=== PATIENT | male | born 1970 | race Caucasian/White ===

== ENCOUNTER 2019-09-15 07:36 | Emergency (ER) | payer OTHER ==
[2019-09-15 07:43] VITALS: RESP 20
[2019-09-15] MEDS ORDERED: LIDOCAINE 1% INJ 10MG/ML (20 ML MDV) SQ ONE (08:07)
[2019-09-15] MEDS ORDERED: DIPH,PERTUS(ACELL)TETVAC-LF 0.5 ML VIAL IM ONE (08:07)
[2019-09-15 08:10] VITALS: TEMP 97.8
[2019-09-15 08:24] LABS: Basophils % (A) 1 %; Eosinophils # (A) 0.2 k/uL (0-0.7); Eosinophils % (A) 3 %; HCT 45.3 % (39.0-53.0); Lymphocytes # (A) 1.3 k/uL (1.0-4.8); Lymphocytes % (A) 22 %; MCV 93.9 fL (80.0-100.0); Mean Platelet Volume 5.6; Monocytes # (A) 0.3 k/uL (0-1.0); Monocytes % (A) 5 %; Neutrophils # (A) 4.1 k/uL (1.3-7.7); Neutrophils % (A) 67 %; Platelet Count 264 k/uL (150-450); RBC 4.83 m/uL (4.30-5.90); RDW 12.6 % (11.5-15.5); WBC 6.1 k/uL (3.8-10.6)
[2019-09-15 08:30] LABS: ALT 45 U/L (21-72); AST 28 U/L (17-59); African American GFR (CKD) >90 (>60 ml/min/1.73 sqM); Albumin 4.1 g/dL (3.5-5.0); Alkaline Phosphatase 61 U/L (38-126); Anion Gap 7 mmol/L; Blood Urea Nitrogen 19 mg/dL (9-20); Calcium 9.2 mg/dL (8.4-10.2); Carbon Dioxide 27 mmol/L (22-30); Chloride 107 mmol/L (98-107); Glucose 103 mg/dL (74-99); Potassium 4.9 mmol/L (3.5-5.1); Sodium 141 mmol/L (137-145); Total Bilirubin 0.3 mg/dL (0.2-1.3); Total Protein 6.8 g/dL (6.3-8.2)
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
--- NOTE | 2019-09-15 08:33 | ED ---
Dizziness HPI <Dean Grey - Last Filed: 09/15/19 08:56> - General Source: patient, RN notes reviewed Mode of arrival: ambulatory Limitations: no limitations <Yobany Canada - Last Filed: 09/15/19 09:27> - General Chief Complaint: Syncope Stated Complaint: Syncope-facial lac Time Seen by Provider: 09/15/19 07:40 - History of Present Illness Initial Comments: This is a 49-year-old male who presents to the emergency department after having passed out this morning. Patient is a crack cocaine user and he was at [facility] this morning. Patient states last night he was given trazodone for the first time when he got up this morning he was standing in line to get his Motrin he felt a little lightheaded went down to his knees and then fell forward and hit his face. Patient states he feels fine now has no complaints patient states he does not have a headache he has no neck pain he has no numbness weakness. Patient states at no time did he have any chest pain palp itations or difficulty breathing. Patient states currently he has no pain anywhere and has no complaints. (Yobany Canada) - Related Data Home Medications Medication Instructions Recorded Confirmed Acetaminophen Tab [Tylenol Tab] 650 mg PO Q6H 09/15/19 09/15/19 Ibuprofen [Motrin] 600 mg PO Q6HR PRN 09/15/19 09/15/19 Multivitamins, Thera [Multivitamin 1 tab PO DAILY 09/15/19 09/15/19 (formulary)] Thiamine HCl [Vitamin B-1] 100 mg PO DAILY 09/15/19 09/15/19 traZODone HCL 50 - 150 mg PO HS 09/15/19 09/15/19 Allergies Allergy/AdvReac Type Severity Reaction Status Date / Time No Known Allergies Allergy Verified 09/15/19 07:59 Review of Systems ROS Other: All systems not noted in ROS Statement are negative. <Dean Grey - Last Filed: 09/15/19 08:56> ROS Other: All systems not noted in ROS Statement are negative. <Yobany Canada - Last Filed: 09/15/19 09:27> ROS Statement: Those systems with pertinent positive or pertinent negative responses have been documented in the HPI. Past Medical History Past Medical History: No Reported History Past Surgical History: No Surgical Hx Reported Past Psychological History: No Psychological Hx Reported Smoking Status: Current every day smoker Past Alcohol Use History: Occasional Past Drug Use History: Cocaine <Yobany Canada - Last Filed: 09/15/19 09:27> General Exam Limitations: no limitations <[place]Yobany - Last Filed: 09/15/19 09:27> - General Exam Comments Initial Comments: GENERAL: Patient is well-developed and well-nourished. Patient is nontoxic and well- hydrated and is in no acute distress. ENT: Neck is soft and supple. No significant lymphadenopathy is noted. Oropharynx is clear. Moist mucous membranes. Neck has full range of motion without eliciting any pain. EYES: The sclera were anicteric and conjunctiva were pink and moist. Extraocular movements were intact and pupils were equal round and reactive to light. Eyelids were unremarkable. PULMONARY: Unlabored respirations. Good breath sounds bilaterally. No audible rales rhonchi or wheezing was noted. CARDIOVASCULAR: There is a regular rate and rhythm without any murmurs gallops or rubs. ABDOMEN: Soft and nontender with normal bowel sounds. No palpable organomegaly was noted. There is no palpable pulsatile mass. SKIN: Patient has a laceration over the left eye measuring about 2 and half centimeters NEUROLOGIC: Patient is alert and oriented x3. Cranial nerves II through XII are grossly intact. Motor and sensory are also intact. Normal speech, volume and content. Symmetrical smile. MUSCULOSKELETAL: Normal extremities with adequate strength and full range of motion. No lower extremity swelling or edema. No calf tenderness. LYMPHATICS: No significant lymphadenopathy is noted PSYCHIATRIC: Normal psychiatric evaluation. (Yobany [place]) Course Vital Signs 09/15/19 09/15/19 09/15/19 07:40 07:51 08:00 Temperature 97.4 F L Pulse Rate 76 68 78 Respiratory 20 20 Rate Blood Pressure 101/69 100/69 O2 Sat by Pulse 99 99 97 Oximetry 09/15/19 08:07 Temperature 97.8 F Pulse Rate 77 Respiratory 20 Rate Blood Pressure 98/65 O2 Sat by Pulse 98 Oximetry Procedures - Laceration Laceration #1 Consent Obtained: verbal consent Indication: laceration Site: face Size (cm): 3 Description: linear Depth: simple, single layer Anesthetic Used: lidocaine 1% Anesthesia Technique: local infiltration Amount (mls): 4 Pre-repair: wound explored, irrigated extensively (with saline pressure irrigation), deep structures intact Type of Sutures: other (ethilon) Size of Sutures: 5-0 Number of Sutures: 4 Technique: simple, interrupted Patient Tolerated Procedure: well, no complications <Dean Grey - Last Filed: 09/15/19 08:56> Medical Decision Making - Lab Data Result diagrams: 09/15/19 08:00 09/15/19 08:00 <Dean Grey - Last Filed: 09/15/19 08:56> - Lab Data Result diagrams: 09/15/19 08:00 09/15/19 08:00 <Yobany Canada - Last Filed: 09/15/19 09:27> - Medical Decision Making EKG shows normal sinus rhythm at 60 bpm AR interval 250 QRS is 88 QT interval 370 QTC is 411. Patient's EKG does show early repolarization. Patient was sutured up by Dean Grey the PA. I will back and reevaluated the patient patient had no symptoms throughout his ED course. (Yobany Canada) - Lab Data Lab Results 09/15/19 09/15/19 09/15/19 Range/Units 08:00 08:00 08:00 WBC 6.1 (3.8-10.6) k/uL RBC 4.83 (4.30-5.90) m/uL Hgb 15.0 (13.0-17.5) gm/dL Hct 45.3 (39.0-53.0) % MCV 93.9 (80.0-100.0) fL MCH 31.0 (25.0-35.0) pg MCHC 33.0 (31.0-37.0) g/dL RDW 12.6 (11.5-15.5) % Plt Count 264 (150-450) k/uL Neutrophils % 67 % Lymphocytes % 22 % Monocytes % 5 % Eosinophils % 3 % Basophils % 1 % Neutrophils # 4.1 (1.3-7.7) k/uL Lymphocytes # 1.3 (1.0-4.8) k/uL Monocytes # 0.3 (0-1.0) k/uL Eosinophils # 0.2 (0-0.7) k/uL Basophils # 0.0 (0-0.2) k/uL Sodium 141 (137-145) mmol/L Potassium 4.9 (3.5-5.1) mmol/L Chloride 107 (98-107) mmol/L Carbon Dioxide 27 (22-30) mmol/L Anion Gap 7 mmol/L BUN 19 (9-20) mg/dL Creatinine 0.93 (0.66-1.25) mg/dL Est GFR (CKD-EPI)AfAm >90 (>60 ml/min/1.73 sqM) Est GFR (CKD-EPI)NonAf >90 (>60 ml/min/1.73 sqM) Glucose 103 H (74-99) mg/dL Calcium 9.2 (8.4-10.2) mg/dL Magnesium 2.0 (1.6-2.3) mg/dL Total Bilirubin 0.3 (0.2-1.3) mg/dL AST 28 (17-59) U/L ALT 45 (21-72) U/L Alkaline Phosphatase 61 (38-126) U/L Troponin I <0.012 (0.000-0.034) ng/mL Total Protein 6.8 (6.3-8.2) g/dL Albumin 4.1 (3.5-5.0) g/dL Disposition <Dean Grey - Last Filed: 09/15/19 08:56> Is patient prescribed a controlled substance at d/c from ED?: No Time of Disposition: 09:27 <Yobany [place] - Last Filed: 09/15/19 09:27> Clinical Impression: Vasovagal syncope Disposition: HOME SELF-CARE Condition: Good Referrals: None,Stated [Primary Care Provider] - 1-2 days
[2019-09-15] MEDS ORDERED: SODIUM CHLORIDE 0.9% 500 ML 500 ML IV ONE (08:49)
[2019-09-15] MEDS ORDERED: FLECAINIDE 50 MG TAB PO STA (08:49)
[2019-09-15] MEDS ORDERED: DILTIAZEM 125 MG in SODIUM CHLORIDE 0.9% 100 ML IV SCH (09:00)
[2019-09-15 09:30] VITALS: BP 110/76; PULSE 65
== END 2019-09-15 09:55 | disposition home or self-care (01) ==
LOC: EC 07:36
DX: R55 Syncope and collapse (principal); Z23 Encounter for immunization; F17.200 Nicotine dependence, unspecified, uncomplicated; W18.39XA Other fall on same level, initial encounter; Y93.89 Activity, other specified
CPT/HCPCS: 36415; 93005; 80053; 83735; 84484; 85025; 71046; 90715; 99284; 90471; 12013; J2001